=== PATIENT | female | born 1965 | race Caucasian/White ===

== ENCOUNTER → 2019-02-28 | Outpatient (CLI) | payer BC ==
--- NOTE | 2019-02-28 13:59 | EST ---
EXERCISE STRESS AGE: 53 SEX: F HT: 5'6" WT: 198 PROTOCOL: Ramesh Stress Test STAGE: 3 DURATION OF EXERCISE: 7:00 HEART RATE REST: 87 BLOOD PRESSURE REST: 147/83 MAXIMUM HEART RATE ACHIEVED: 155 MAXIMUM BLOOD PRESSURE: 205/84 85% MPHR: 141 100% MPHR: 166 METS: 8.1 INDICATIONS: Hypertension. CLINICAL INFORMATION: Patient was exercised for a total period of 7 minutes, peak heart rate of 155 was achieved. Maximum blood pressure of 205/84 mmHg was noted. Resting EKG shows normal sinus rhythm with normal MN interval and QRS duration and normal ST-T waves. No ST- segment depression suggestive of ischemia is noted. No dysrhythmias are noted. FINAL IMPRESSION: 1. This exercise test is not suggestive of ischemia. 2. Patient's exercise tolerance is normal. 3. No dysrhythmias are noted. MMODL / IJN: [id number] /
== END | disposition home or self-care (01) ==
LOC: RADNMMAIN 08:37
PROVIDERS: ATTEND Family Medicine
DX: I10 Essential (primary) hypertension (principal); R06.02 Shortness of breath
CPT/HCPCS: 93017

== ENCOUNTER → 2019-03-09 | Outpatient (CLI) | payer BC ==
[2019-03-09 08:34] LABS: Basophils # (A) 0.1 k/uL (0-0.2); Basophils % (A) 1 %; Eosinophils # (A) 0.2 k/uL (0-0.7); Eosinophils % (A) 3 %; HCT 40.1 % (34.0-46.0); HGB 13.4 gm/dL (11.4-16.0); Lymphocytes # (A) 2.1 k/uL (1.0-4.8); Lymphocytes % (A) 28 %; MCH 29.6 pg (25.0-35.0); MCHC 33.4 g/dL (31.0-37.0); MCV 88.5 fL (80.0-100.0); Monocytes # (A) 0.4 k/uL (0-1.0); Monocytes % (A) 5 %; Neutrophils # (A) 4.6 k/uL (1.3-7.7); Neutrophils % (A) 61 %; Platelet Count 326 k/uL (150-450); RBC 4.53 m/uL (3.80-5.40); RDW 14.3 % (11.5-15.5); WBC 7.4 k/uL (3.8-10.6)
[2019-03-09 16:03] LABS: Albumin 4.4 g/dL (3.80-4.90); Albumin/Globulin Ratio 2.2 (1.60-3.17); Anion Gap 8.3 mmol/L (4.00-12.00); BUN/Creat Ratio 13.33 Ratio (12.00-20.00); Calcium 9.5 mg/dL (8.7-10.3); Carbon Dioxide 26.7 mmol/L (21.6-31.8); Chol/HDL Ratio 3.93; LDL Cholesterol,Calculated 149.6 mg/dL (0.0-131.0); Potassium 4.9 mmol/L (3.5-5.5); Total Bilirubin 0.4 mg/dL (0.3-1.2); Total Protein 6.4 g/dL (6.2-8.2); VLDL Calculation 26.4 mg/dL (5.00-40.00)
== END | disposition home or self-care (01) ==
LOC: LABWHC1 07:29
PROVIDERS: ATTEND Family Medicine
DX: I10 Essential (primary) hypertension (principal)
CPT/HCPCS: 36415; 80053; 80061; 84443; 85025

== ENCOUNTER → 2020-07-18 | Outpatient (CLI) | payer BC ==
--- NOTE | 2020-07-19 08:27 | MM ---
Reason for exam: screening (asymptomatic). Last mammogram was performed 4 years ago. Physical Findings: A clinical breast exam by your physician is recommended on an annual basis and results should be correlated with mammographic findings. MG 3D Screening Mammo W/Cad Bilateral CC and MLO view(s) were taken. Prior study comparison: July 09, 2016, mammogram, performed at [facility]. May 08, 2015, mammogram, performed at [facility]. There are scattered fibroglandular densities. There are benign appearing round calcifications bilaterally. There is no discrete abnormality. ASSESSMENT: Benign, BI-RAD 2 RECOMMENDATION: Routine screening mammogram of both breasts in 1 year.
== END | disposition home or self-care (01) ==
LOC: RADMAMWWP 11:19
PROVIDERS: ATTEND Obstetrics & Gynecology
DX: Z12.31 Encounter for screening mammogram for malignant neoplasm of breast (principal)
CPT/HCPCS: 77063; 77067

== ENCOUNTER → 2021-03-20 | Outpatient (CLI) | payer BC ==
--- NOTE | 2021-03-20 12:19 | CT ---
EXAMINATION TYPE: CT heart w calcium score DATE OF EXAM: 03/20/2021 COMPARISON: None. HISTORY: Screening for cardiovascular disorder. 213.9. Family history of coronary artery disease. CT DLP: 58.3 mGycm Automated exposure control for dose reduction was used. CT CALCIUM SCORING Coronary calcium is a marker for plaque (fatty deposits) in a blood vessel or atherosclerosis (harden ing of the arteries). The presence and amount of calcium detected in a coronary artery by the CT sca n, indicates the presence and amount of atherosclerotic plaque. These calcium deposits appear years before the development of heart disease symptoms such as chest pain and shortness of breath. A calcium score is computed for each of the coronary arteries based upon the volume and density of th e calcium deposits. This can be referred to as your calcified plaque burden. It does not correspond directly to the percentage of narrowing in the artery but does correlate with the severity of the un derlying coronary atherosclerosis. PROCEDURE TECHNIQUE - Prospective Gating was used. Slice thickness: 3mm. Density threshold (HU): 130, Pixel threshold: 3, Algorithm: discrete. RESULTS Region: LM Calcium Score (Agatston): 5.03 Volume (mm3): 8.83 Mass (g): 4.42 Region: RCA Calcium Score (Agatston): 0 Volume (mm3): 0 Mass (g): 0 Region: LAD Calcium Score (Agatston): 2.82 Volume (mm3): 5.15 Mass (g): 2.58 Region: CX Calcium Score (Agatston): 0 Volume (mm3): 0 Mass (g): 0 Region: PDA Calcium Score ([place]atston): 0 Volume (mm3): 0 Mass (g): 0 Total: Calcium Score (Agatston): 7.85 Volume (mm3): 13.99 Mass (g): 6.99 TOTAL CALCIUM SCORE: 7.85 No suspicious incidental findings. IMPRESSION: Calcium Score: 1-10 Implication: Minimal identifiable plaque. Risk of Coronary Artery Disease: Very unlikely, less than 10%. CALCIUM SCORE IMPLICATION RISK OF C ORONARY ARTERY DISEASE 0 No identifiable plaque Very low, generally less than 5% 1-10 Minimal identifiable plaque Very unlikely, less than 10% 11-100 Definite, at least mild atherosclerotic plaque Mild or m inimal coronary narrowings likely 101-400 Definite, at least moderate atherosclerotic plaque Mild coronary ar rosalina disease highly likely, significant narrowing possible 401 or Higher Extensive atherosclerotic plaque High lik elihood of at least one significant coronary narrowing
== END | disposition home or self-care (01) ==
LOC: RADCTMAIN 08:54
PROVIDERS: ATTEND Family Medicine
DX: Z09 Encounter for follow-up examination after completed treatment for conditions other than malignant neoplasm (principal); Z82.49 Family history of ischemic heart disease and other diseases of the circulatory system
CPT/HCPCS: 75571

== ENCOUNTER → 2022-05-01 | Outpatient (CLI) | payer BC ==
--- NOTE | 2022-05-04 08:11 | MM ---
Reason for Exam: Screening (asymptomatic). Last mammogram was performed 1 year(s) and 9 month(s) ago. Patient History: Menarche at age 11. Hysterectomy at age 42. Risk Values: Geetha 5 year model risk: 0.9%. NCI Lifetime model risk: 5.7%. Prior Study Comparison: 05/08/2015 Screening Mammogram, [facility]. 07/09/2016 Screening Mammogram, [facility]. 07/18/2020 Bilateral Screening Mammogram, [facility]. Tissue Density: There are scattered fibroglandular densities. Findings: Analyzed By CAD. No suspicious groups of microcalcifications, spiculated or lobular masses, architectural distortion or other secondary signs of malignancy are mammographically apparent. Overall Assessment: Negative, BI-RAD 1 Management: Screening Mammogram of both breasts in 1 year. A negative mammogram report should not preclude additional follow up of suspicious palpable abnormalities. Patient should continue monthly self breast exam. A clinical breast exam by your physician is recommended on an annual basis and results should be correlated with mammographic findings. Electronically signed and approved by: Pablo Deras D.O. Radiologis
== END | disposition home or self-care (01) ==
LOC: RADMAMWWP 08:16
PROVIDERS: ATTEND Family Medicine
DX: Z12.31 Encounter for screening mammogram for malignant neoplasm of breast (principal)
CPT/HCPCS: 77063; 77067

== ENCOUNTER → 2023-06-16 | Outpatient (CLI) | payer SELFPAY ==
--- NOTE | 2023-06-17 10:14 | MM ---
Reason for Exam: Screening (asymptomatic). Last mammogram was performed 1 year(s) and 2 month(s) ago. Patient History: Menarche at age 11. Hysterectomy at age 42. Risk Values: Geetha 5 year model risk: 1.0%. NCI Lifetime model risk: 5.6%. Prior Study Comparison: 07/09/2016 Screening Mammogram, [facility]. 07/18/2020 Bilateral Screening Mammogram, [facility]. 05/01/2022 Bilateral MG 3D screening mammo w/cad, [facility]. Tissue Density: The breast tissue is almost entirely fat. Findings: Analyzed By CAD. There is no suspicious group of microcalcifications or new suspicious mass. Overall Assessment: Negative, BI-RAD 1 Management: Screening Mammogram of both breasts in [address] [facility] will attempt to contact patient to return for supplemental views and ultrasound if indicated. Patient should continue monthly self-breast exams. A clinical breast exam by your physician is recommended on an annual basis. This exam should not preclude additional follow-up of suspicious palpable abnormalities. Note on Geetha scores and lifetime risk: 1. A Geetha score greater than 3% is considered moderate risk. If this is the case, consider specialist referral to assess eligibility for a risk reducing agent. 2. If overall lifetime risk for the development of breast cancer is 20% or higher, the patient may qualify for future screening with alternating mammogram and breast MRI. Electronically signed and approved by: Nikita Mcgowan DO
== END | disposition home or self-care (01) ==
LOC: RADMAMWWP 08:53
PROVIDERS: ATTEND Family Medicine
DX: Z12.31 Encounter for screening mammogram for malignant neoplasm of breast (principal)
CPT/HCPCS: 77063; 77067

== ENCOUNTER → 2023-11-02 | Outpatient (CLI) | payer BC ==
[2023-11-02 23:45] LABS: Alternaria alternata IgE 0.54 kU/L; Aspergillus fumagatus IgE 0.5 kU/L; Birch IgE 0.39 kU/L; Cat Epith & Dander IgE 0.71 kU/L; Cladosporian herbarum IgE 0.71 kU/L; Clam IgE 0.66 kU/L; Cockroach IgE 0.68 kU/L; Dermato. farinae IgE 0.65 kU/L; Dog Dander IgE 0.6 kU/L; Egg White IgE 0.46 kU/L; Elm IgE 0.39 kU/L; Maple (Box Elder) IgE 1.04 kU/L; Oak IgE 0.58 kU/L; Peanut IgE 0.43 kU/L; Ragweed,Common IgE 0.4 kU/L; Red Top (Bentgrass) IgE 0.38 kU/L; Scallop IgE <0.10 kU/L; Soybean IgE 0.39 kU/L
== END | disposition home or self-care (01) ==
LOC: LABWHC1 11:30
PROVIDERS: ATTEND Internal Medicine Critical Care Medicine
DX: J45.909 Unspecified asthma, uncomplicated (principal)
CPT/HCPCS: 36415; 82785; 85008; 86003

== ENCOUNTER → 2024-06-22 | Outpatient (CLI) | payer BC ==
--- NOTE | 2024-06-26 11:41 | MM ---
Reason for Exam: Screening (asymptomatic). Last screening mammogram was performed 12 month(s) ago. Patient History: Menarche at age 11. Patient has no children. Hysterectomy at age 42. Risk Values: Geetha 5 year model risk: 1.5%. NCI Lifetime model risk: 8.3%. Prior Study Comparison: 07/18/2020 Bilateral Screening Mammogram, [facility]. 05/01/2022 Bilateral MG 3D screening mammo w/cad, [facility]. 06/16/2023 Bilateral MG 3D screening mammo w/cad, [facility]. Tissue Density: The breasts are heterogeneously dense, which may obscure small masses. Findings: Analyzed By CAD. There is no suspicious group of microcalcifications or new suspicious mass in either breast. Benign-appearing calcifications. Overall Assessment: Benign, BI-RAD 2 Management: Screening Mammogram of both breasts in 1 year. . Patient should continue monthly self-breast exams. A clinical breast exam by your physician is recommended on an annual basis. This exam should not preclude additional follow-up of suspicious palpable abnormalities. Note on Geetha scores and lifetime risk: 1. A Geetha score greater than 3% is considered moderate risk. If this is the case, consider specialist referral to assess eligibility for a risk reducing agent. 2. If overall lifetime risk for the development of breast cancer is 20% or higher, the patient may qualify for future screening with alternating mammogram and breast MRI. [facility], , 06/26/2024 11:37 AM. Electronically signed and approved by: Remington Ren M.D. Radiologis
== END | disposition home or self-care (01) ==
LOC: RADMAMWWP 08:33
PROVIDERS: ATTEND Family Medicine
DX: Z12.31 Encounter for screening mammogram for malignant neoplasm of breast (principal); R92.333 Mammographic heterogeneous density, bilateral breasts
CPT/HCPCS: 77063; 77067

== ENCOUNTER 2024-10-21 20:25 | Emergency (ER) | payer BC ==
[2024-10-21 20:37] VITALS: RESP 18; TEMP 97.9
--- NOTE | 2024-10-21 21:10 | ED ---
Allergic Reaction HPI - General Chief complaint: Allergic Reaction Stated complaint: allergic reaction Time Seen by Provider: 10/21/24 20:42 Source: patient, RN notes reviewed Mode of arrival: ambulatory Limitations: no limitations - History of Present Illness Initial Comments: This is a 59-year-old female presenting for allergic reaction x 2 days. Patient states she was doing yard work around her barn yesterday morning when she began experiencing redness, swelling and itching of her upper and lower extremities later last evening. States symptoms continued into today with worsening itching, swelling of years and warmth. Denies known cause for symptoms or recent allergic contact, change in detergent/soap. Endorses use of Benadryl at 1900 with minimal relief. Denies lip/tongue/throat swelling, dyspnea/SOB, excessive salivation/tearing, nausea/vomiting, AMS. MD Complaint: allergic reaction, hives Onset/Timin -: days(s) Symptoms: rash, itching Severity: mild Treatment Prior to Arrival: benadryl Previous Allergy History: none - Related Data Previous Rx's Medication Instructions Recorded predniSONE 50 mg PO DAILY #4 tab 06/11/15 Allergies Allergy/AdvReac Type Severity Reaction Status Date / Time No Known Allergies Allergy Verified 10/21/24 20:36 Review of Systems ROS Statement: Those systems with pertinent positive or pertinent negative responses have been documented in the HPI. ROS Other: All systems not noted in ROS Statement are negative. 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 Absent: scleral icterus, conjunctival injection, periorbital swelling ENT exam: Present: normal exam, mucous membranes moist Neck exam: Present: normal inspection. Absent: tenderness, meningismus, lymphadenopathy Respiratory exam: Present: normal lung sounds bilaterally. Absent: respiratory distress, wheezes, rales, rhonchi, stridor Cardiovascular Exam: Present: regular rate, normal rhythm, normal heart sounds. Absent: systolic murmur, diastolic murmur, rubs, gallop, clicks GI/Abdominal exam: Present: soft, normal bowel sounds. Absent: distended, tenderness, guarding, rebound, rigid Extremities exam: Present: normal inspection, full ROM, normal capillary refill. Absent: tenderness, pedal edema, joint swelling, calf tenderness Back exam: Present: normal inspection Neurological exam: Present: alert, oriented X3, CN II-XII intact Psychiatric exam: Present: normal affect, normal mood Skin exam: Present: warm, dry, intact, normal color, urticaria (Diffuse, confluent urticaria to bilateral upper arms and patches on bilateral shins.). Absent: rash, vesicles, petechiae, mottled Course Vital Signs 10/21/24 10/21/24 20:32 21:53 Temperature 97.9 F Pulse Rate 94 73 Respiratory 18 18 Rate Blood Pressure 168/80 153/93 O2 Sat by Pulse 98 99 Oximetry Medical Decision Making - Medical Decision Making Was pt. sent in by a medical professional or institution (, PA, VIRTUAL CUSTOMER ASSISTANT, urgent care, hospital, or fdc...) When possible be specific @ -No Did you speak to anyone other than the patient for history (EMS, parent, family, police, friend...)? What history was obtained from this source @ -No Did you review nursing and triage notes (agree or disagree)? Why? @ -I reviewed and agree with nursing and triage notes Were old charts reviewed (outside hosp., previous admission, EMS record, old EKG, old radiological studies, urgent care reports/EKG's, fdc records)? Report findings @ -No old charts were reviewed Differential Diagnosis (chest pain, altered mental status, abdominal pain women, abdominal pain men, vaginal bleeding, weakness, fever, dyspnea, syncope, headache, dizziness, GI bleed, back pain, seizure, CVA, palpatations, mental health, musculoskeletal)? @ -Allergic urticaria, contact dermatitis, atopic dermatitis, cellulitis, erysipelas, SJS, TENS, this is not an exhaustive list EKG interpreted by me (3pts min.). @ -Not done X-rays interpreted by me (1pt min.). @ -None done CT interpreted by me (1pt min.). @ -None done U/S interpreted by me (1pt. min.). @ -None done What testing was considered but not performed or refused? (CT, X-rays, U/S, labs)? Why? @ -None What meds were considered but not given or refused? Why? @ -Patient declined any steroids sent to pharmacy, stating she has oral steroids at home already. Did you discuss the management of the patient with other professionals (professionals i.e. , PA, VIRTUAL CUSTOMER ASSISTANT, lab, RT, psych nurse, social media community manager, general ledger accountant, teacher, airfield engineer officer, skilled nursing case manager)? Give summary @ -No Was smoking cessation discussed for >3mins.? @ -No Was critical care preformed (if so, how long)? @ -No Were there social determinants of health that impacted care today? How? (Homelessness, low income, unemployed, alcoholism, drug addiction, gasca sportation, low edu. Level, literacy, decrease access to med. care, nursing home, rehab)? @ -No Was there de-escalation of care discussed even if they declined (Discuss DNR or withdrawal of care, Hospice)? DNR status @ -No What co-morbidities impacted this encounter? (DM, HTN, Smoking, COPD, CAD, Cancer, CVA, ARF, Chemo, Hep., AIDS, mental health diagnosis, sleep apnea, morbid obesity)? @ -None Was patient admitted / discharged? Hospital course, mention meds given and route, prescriptions, significant lab abnormalities, going to OR and other pertinent info. @ -Patient provided IM Solu-Medrol and Benadryl with symptoms beginning to resolve shortly afterwards. Patient states she has p.o. steroids at home and will continue daily use for any ongoing symptoms. Advised ongoing use of 25-50 mg Benadryl every 6 hours as needed for any ongoing symptoms. Advised follow-up with PCP/veneer glue jointer feedback in the next 24-48 hours. Return to ER if experiencing throat swelling or difficulty breathing. Discussed patient with Dr. Joel. Undiagnosed new problem with uncertain prognosis? @ -No Drug Therapy requiring intensive monitoring for toxicity (Heparin, Nitro, Insulin, Cardizem)? @ -No Were any procedures done? @ -No Diagnosis/symptom? @ -Contact dermatitis Acute, or Chronic, or Acute on Chronic? @ -Acute Uncomplicated (without systemic symptoms) or Complicated (systemic symptoms)? @ -Uncomplicated Side effects of treatment? @ -No Exacerbation, Progression, or Severe Exacerbation? @ -No Poses a threat to life or bodily function? How? (Chest pain, [place], [place], pneumonia, PE, COPD, DKA, ARF, appy, cholecystitis, CVA, Diverticulitis, Homicidal, Suicidal, threat to staff... and all critical care pts) @ -No Disposition Clinical Impression: Contact dermatitis Disposition: HOME SELF-CARE Condition: Good Instructions (If sedation given, give patient instructions): Urticaria (ED) Additional Instructions: Take [id number] Benadryl as directed for any ongoing symptoms. Follow-up with PCP for further allergic reaction workup. Is patient prescribed a controlled substance at d/c from ED?: No Referrals: Zulema Chery MD [Primary Care Provider] - 1-2 days Time of Disposition: 22:00
[2024-10-21] MEDS: diphenhydrAMINE 50 MG/ML 1 ML VIAL IM STA (21:16)
[2024-10-21] MEDS: methylPREDNISolone SOD SUCCI 125 MG/2 ML VIAL IM ONE (21:16)
[2024-10-21 21:57] VITALS: BP 153/93; PULSE 73
== END 2024-10-21 21:57 | disposition home or self-care (01) ==
LOC: EC 20:25
DX: L23.9 Allergic contact dermatitis, unspecified cause (principal)
CPT/HCPCS: 99283; 96372 ×2; J1200; J2919

== ENCOUNTER 2024-10-29 20:52 | Emergency (ER) | payer BC ==
--- NOTE | 2024-10-29 22:05 | ED ---
Recheck HPI - General Chief Complaint: Recheck/Abnormal Lab/Rx Stated Complaint: Post op issue Time Seen by Provider: 10/29/24 21:56 Source: patient, RN notes reviewed Mode of arrival: ambulatory Limitations: no limitations - History of Present Illness Initial Comments: 59-year-old female presenting for right leg pain status post sclerotherapy 2 days ago. States she had sclerotherapy done in 3 locations total, 1 on the upper right leg, and 2 in the lower right leg. Patient states she was got home from the sclerotherapy and did some yard work outside 2 days ago and now is endorsing some pain at the site of the sclerotherapy on the upper right leg. States she thinks she may feel a bump around the sites and wants to make sure it is nothing serious. Denies fever, vomiting, redness, drainage. Denies blood thinners. - Related Data Previous Rx's Medication Instructions Recorded predniSONE 50 mg PO DAILY #4 tab 06/11/15 Allergies Allergy/AdvReac Type Severity Reaction Status Date / Time sulfamethoxazole Allergy Rash/Hives Verified 10/29/24 21:05 [From Bactrim] trimethoprim [From Bactrim] Allergy Rash/Hives Verified 10/29/24 21:05 Review of Systems ROS Statement: Those systems with pertinent positive or pertinent negative responses have been documented in the HPI. ROS Other: All systems not noted in ROS Statement are negative. 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 History of Any Multi-Drug Resistant Organisms: None Reported Past Surgical History: Cholecystectomy, Hysterectomy Additional Past Surgical History / Comment(s): ABLATION FOR AVNRT Past Psychological History: No Psychological Hx Reported Past Alcohol Use History: Occasional Past Drug Use History: None Reported General Exam Limitations: no limitations General appearance: alert, in no apparent distress Head exam: Present: atraumatic, normocephalic, normal inspection Right Upper Leg exam: Present: normal inspection (Mild contusion over inner aspect of upper leg with no palpable mass or tenderness.), full ROM. Absent: tenderness, swelling Knee exam: Present: normal inspection, full ROM. Absent: tenderness, swelling Lower Leg exam: Present: normal inspection (Mild contusions over 2 areas of sclerotherapy), full ROM. Absent: tenderness, swelling, erythema, palpable cord, Homans' sign Ankle exam: Present: normal inspection, full ROM. Absent: tenderness, swelling Foot/Toe exam: Present: normal inspection, full ROM. Absent: tenderness, swelling Neurovascular tendon exam: Present: no vascular compromise. Absent: pulse deficit, abnormal cap refill, motor deficit Neurological exam: Present: alert, oriented X3 Psychiatric exam: Present: normal affect, normal mood Skin exam: Present: warm, dry, intact, normal color. Absent: rash Course Vital Signs 10/29/24 21:01 Temperature 98.2 F Pulse Rate 102 H Respiratory 17 Rate Blood Pressure 166/93 O2 Sat by Pulse 97 Oximetry Medical Decision Making - Medical Decision Making Was pt. sent in by a medical professional or institution (, PA, REMOTE SENSING SPECIALIST, urgent care, hospital, or intermediate...) When possible be specific @ -No Did you speak to anyone other than the patient for history (EMS, parent, family, police, friend...)? What history was obtained from this source @ -No Did you review nursing and triage notes (agree or disagree)? Why? @ -I reviewed and agree with nursing and triage notes Were old charts reviewed (outside hosp., previous admission, EMS record, old EKG, old radiological studies, urgent care reports/EKG's, intermediate records)? Report findings @ -No old charts were reviewed Differential Diagnosis (chest pain, altered mental status, abdominal pain women, abdominal pain men, vaginal bleeding, weakness, fever, dyspnea, syncope, headache, dizziness, GI bleed, back pain, seizure, CVA, palpatations, mental health, musculoskeletal)? @ -Differential Musculoskeletal Muscular strain, contusion, ligament sprain, fracture, arthritis, septic arthritis, bursitis, cellulitis, muscle spasm, nerve compression, DVT, arterial occlusion, herpes zoster, electrolyte abnormality, tumor.... This is not meant to be in all inclusive list EKG interpreted by me (3pts min.). @ -None X-rays interpreted by me (1pt min.). @ -None done CT interpreted by me (1pt min.). @ -None done U/S interpreted by me (1pt. min.). @ -Ultrasound right lower extremity negative for DVT What testing was considered but not performed or refused? (CT, X-rays, U/S, labs)? Why? @ -None What meds were considered but not given or refused? Why? @ -None Did you discuss the management of the patient with other professionals (professionals i.e. Dr., PA, REMOTE SENSING SPECIALIST, lab, RT, psych nurse, social service liaison, software writer, teacher, chief technology officer, nurse outreach case manager)? Give summary @ -No Was smoking cessation discussed for >3mins.? @ -No Was critical care preformed (if so, how long)? @ -No Were there social determinants of health that impacted care today? How? (Homelessness, low income, unemployed, alcoholism, drug addiction, transportation, low edu. Level, literacy, decrease access to med. care, skilled nursing, rehab)? @ -No Was there de-escalation of care discussed even if they declined (Discuss DNR or withdrawal of care, Hospice)? DNR status @ -No What co-morbidities impacted this encounter? (DM, HTN, Smoking, COPD, CAD, Cancer, CVA, ARF, Chemo, Hep., AIDS, mental health diagnosis, sleep apnea, morbid obesity)? @ -None Was patient admitted / discharged? Hospital course, mention meds given and route, prescriptions, significant lab abnormalities, going to OR and other pertinent info. @ -Discharge. 59-year-old female presenting for right leg pain status post sclerotherapy 2 days ago. Neurovascularly intact. No drainage or sign of bacterial infection. Ultrasound right lower extremity negative for DVT. Discussed results with patient. I do not identify emergent etiology causing symptoms today. I reassured patient that small amount of discomfort and swelling is normal after any procedure, however I encouraged her to follow-up with the vein clinic this week for reevaluation. Appropriate return precautions discussed. Case was discussed with ED attending Dr. Salinas. Undiagnosed new problem with uncertain prognosis? @ -No Drug Therapy requiring intensive monitoring for toxicity (Heparin, Nitro, Insulin, Cardizem)? @ -No Were any procedures done? @ -No Diagnosis/symptom? @ -Right upper leg pain Acute, or Chronic, or Acute on Chronic? @ -Acute Uncomplicated (without systemic symptoms) or Complicated (systemic symptoms)? @ -Uncomplicated Side effects of treatment? @ -No Exacerbation, Progression, or Severe Exacerbation? @ -No Poses a threat to life or bodily function? How? (Chest pain, [place], [place], pneumonia, PE, COPD, DKA, ARF, appy, cholecystitis, CVA, Diverticulitis, Homicidal, Suicidal, threat to staff... and all critical care pts) @ -No Disposition Clinical Impression: Right leg pain, Status post sclerotherapy of varicose veins Disposition: HOME SELF-CARE Condition: Stable Additional Instructions: Please return to the Emergency Department if symptoms worsen or any other concerns. Is patient prescribed a controlled substance at d/c from ED?: No Referrals: Zulema Chery MD [Primary Care Provider] - 1-2 days Time of Disposition: 00:57
--- NOTE | 2024-10-30 00:23 | US ---
EXAM: US Duplex Right Lower Extremity Veins CLINICAL HISTORY: US Reason: pain TECHNIQUE: Real-time duplex ultrasound scan of the right lower extremity veins integrating B-mode two-dimensional vascular structure, Doppler spectral analysis, color flow Doppler imaging and compression. COMPARISON: No relevant prior studies available. FINDINGS: Deep veins: Unremarkable. No DVT in the visualized common femoral, femoral, proximal deep femoral or popliteal veins. The veins demonstrate normal color flow, are normally compressible, with normal phasic flow and/or augmentation response. Superficial veins: Unremarkable. No thrombus in the visualized great saphenous vein. Soft tissues: No acute findings. No popliteal cyst. IMPRESSION: Negative right lower extremity duplex venous ultrasound. No evidence of DVT.
[2024-10-30 01:21] VITALS: BP 162/84; PULSE 74; RESP 16; TEMP 97.8
== END 2024-10-30 01:06 | disposition home or self-care (01) ==
LOC: EC 20:52
DX: M79.604 Pain in right leg (principal); Z98.890 Other specified postprocedural states; Z88.2 Allergy status to sulfonamides; Z88.1 Allergy status to other antibiotic agents
CPT/HCPCS: 99283